=== PATIENT | female | born 1985 | race Caucasian/White ===

== ENCOUNTER → 2020-10-15 | Outpatient (CLI) | payer OTHER | LOC: COL.RAD 11:24 | DX: R29.898 Other symptoms and signs involving the musculoskeletal system (principal); R51.9 Headache, unspecified ==

== ENCOUNTER 2023-09-14 01:07 | Observation (INO) | payer OTHER ==
[~2023-09-14] VITALS: Ht 172.7 cm; Wt 99.6 kg
[2023-09-14] VITALS (18 sets, daily range): BP systolic 110–151; BP diastolic 62–84; PULSE 71–88; TEMP 97.7–98.7
[~2023-09-14 01:07] MED LIST: CARAFATE 1GM1 G PO; CYMBALTA 60MG60 MG PO; LEXAPRO 5MG5 MG PO; NATURAL MAGNES200 MG PO; PROTONIX20 MG PO; VITAMIN D31000 I1 PO
[2023-09-14] MEDS ORDERED: NS 1,000 ML IV ONE (01:30)
[2023-09-14] MEDS ORDERED: Ondansetron 4 MG/2 ML VIAL IV ONE (01:30)
[2023-09-14] MEDS ORDERED: HYDROmorphone 0.5 MG/0.5 ML SYRINGE IV ONE ×2 (01:30→02:15)
[2023-09-14 01:43] LABS: HEMATOCRIT 40.3 % (37.0-47.0); HEMOGLOBIN 13.4 g/dl (12.5-16.0); MEAN CELL VOLUME 86 fl (80.0-100.0); MEAN CORPUSCULAR HEMOGLOBIN 29 pg (27-31); MEAN CORPUSCULAR HGB CONC 33 g/dl (33.0-37.0); MEAN PLATELET VOLUME 9.4 fl (7.4-10.4); PLATELET COUNT 311 K/mm3 (130-400); RED BLOOD COUNT 4.67 M/mm3 (4.10-5.30); REDCELL DISTRIBUTION WIDTH-CV 12.6 % (11.5-14.5)
[2023-09-14 01:55] LABS: COLLECTION METHOD CLEAN CATCH
[2023-09-14 02:01] LABS: ALANINE AMINOTRANSFERASE 14 U/L (0-55); ALBUMIN 3.8 gm/dL (3.5-5.0); ALKALINE PHOSPHATASE 99 U/L (40-150); ANION GAP 10 mmol/L (7-16); AST,SGOT 10 U/L (5-34); BILIRUBIN,TOTAL 0.3 mg/dL (0.2-1.2); BLOOD UREA NITROGEN 12 mg/dL (7-19); C-REACTIVE PROTEIN 0.67 mg/dL (0.00-0.50); CALCIUM 9.6 mg/dL (8.4-10.2); CARBON DIOXIDE 22 mmol/L (22-29); CHLORIDE 107 mmol/L (98-107); CREATININE, serum 0.85 mg/dL (0.57-1.11); GLUCOSE 128 mg/dL (70-99); LIPASE 199 U/L (8-78); POTASSIUM 4.1 mmol/L (3.5-4.5); SODIUM 139 mmol/L (136-145)
[2023-09-14 02:08] LABS: TROPONIN-I < 0.010 ng/mL (0.00-0.033)
[2023-09-14 02:09] LABS: LYMPHOCYTE 55 % (20.0-51.0); NEUTROPHILS 38 % (42.0-75.2)
[2023-09-14 02:10] LABS: HYPOCHROMIA 1+; PLATELET ESTIMATE NORMAL (NORMAL)
[2023-09-14 02:38] LABS: PH 5.5 (5.0-8.5); SQUAMOUS EPITHELIAL 0-2 /hpf (0-10); URINE APPEARANCE Clear (CLEAR/HAZY); URINE BACTERIA Occasional /hpf (NONE SEEN); URINE BLOOD Negative (NEGATIVE); URINE COLOR Yellow (YELLOW); URINE GLUCOSE Negative (NEGATIVE); URINE KETONE Negative (NEGATIVE); URINE NITRATE Negative (NEGATIVE); URINE PROTEIN(semi-quant) Negative (NEGATIVE); URINE RBC 0-2 /hpf (0-2); URINE UROBILINOGEN 0.2 E.U/dL (0.2-1.0)
[2023-09-14] MEDS ORDERED: Iohexol 300 - 100 ML VIAL IV ONE (02:46)
[2023-09-14] MEDS ORDERED: NS 60 ML IV ONE (02:47)
[2023-09-14] MEDS ORDERED: Ondansetron 4 MG/2 ML VIAL IV PRN ×2 (03:45→16:45)
[2023-09-14] MEDS ORDERED: NS 1,000 ML IV SCH (03:45)
[2023-09-14] MEDS ORDERED: HYDROmorphone 0.5 MG/0.5 ML SYRINGE IV PRN (03:45)
[2023-09-14] MEDS ORDERED: GLUCOPHAGE500 MG/TAB PO (04:10)
--- NOTE | 2023-09-14 05:04 | NUR ---
patient arrived from ED at 0415, alert and oriented x4. pt denies chest pain, shortness of breath, and nausea. reports 5/10 intermittent dull/sharp pain in the upper right quadrant that is tender to palpation, refuses additional pain meds at this time. IV in LAC is patent, site is clean dry and intact with NS running at 125ml/hr. no remarkable skin findings noted. pt has no further needs, questions, or concerns at this time. pt ambulating with steady gait. call light within reach. will continue to monitor.
[2023-09-14] MEDS ORDERED: Dextrose 50% Water 25 GM/50 ML SYRINGE IV PRN (07:15)
[2023-09-14] MEDS ORDERED: Dextrose (Glucose) 15 GM (4 x 3.75 GM) Chewable TABLET PACK PO PRN (07:15)
[2023-09-14] MEDS ORDERED: Glucagon 1 MG VIAL IM PRN (07:15)
--- NOTE | 2023-09-14 07:15 | NUR ---
pt a&ox3 resting in bed. pt reports nausea and pain, zofran and dilaudid given. pt rates pain a 01/29. fluids infusing into left ac at 125 ml/hr. pt to have US today. denies needs at this time. call light in reach.
[2023-09-14] MEDS ORDERED: Insulin Aspart (NovoLOG) SQ SCH (08:00)
[2023-09-14] MEDS ORDERED: GLUCOPHAGE XR500 M1 PO (10:14)
[2023-09-14] MEDS ORDERED: LEXAPRO20 MG PO (10:14)
[2023-09-14] MEDS ORDERED: MAG-OX 400400 MG/TAB PO (10:15)
[2023-09-14] MEDS ORDERED: PROTONIX 40MG T40 MG PO (10:16)
[2023-09-14] MEDS ORDERED: LEADER NATUR1000 MCG PO (10:16)
[2023-09-14] MEDS ORDERED: Acetaminophen 500 MG TAB PO PRN (12:30)
--- NOTE | 2023-09-14 13:26 | NUR ---
Individual Pension Adviser met with patient and her , Beau (ph#[phone]) to discuss discharge planning. Patient lives in [place] and goes to [facility] on [address] for primary care. Patient either uses [facility] or [facility] to fill her medications. 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 Patient does not use any DME and is able to drive herself to medical appointments. Patient does not have DPOA-HC and was not interested in completing one at this time. Discharge Plan: Home
[2023-09-14] MEDS ORDERED: LR 1,000 ML IV SCH (13:30)
--- NOTE | 2023-09-14 15:35 | NUR ---
pt off floor for surgery
[2023-09-14] MEDS ORDERED: fentaNYL 50 MCG/ML 2 ML VIAL ONE (15:43)
[2023-09-14] MEDS ORDERED: Rocuronium 50 MG/5 ML Multi-Dose VIAL ONE (15:43)
[2023-09-14] MEDS ORDERED: Succinylcholine PF 100 MG/5 ML SYRINGE/POLY AMP IV ONE (15:44)
[2023-09-14] MEDS ORDERED: Ondansetron 4 MG/2 ML VIAL ONE (16:16)
[2023-09-14] MEDS ORDERED: dexAMETHasone 10 MG/ML VIAL ONE (16:16)
[2023-09-14] MEDS ORDERED: Ketorolac 30 MG/ML VIAL ONE ×2 (16:35)
[2023-09-14] MEDS ORDERED: Lidocaine PF 2% (20 MG/ML) 5 ML VIAL ONE (16:37)
[2023-09-14] MEDS ORDERED: fentaNYL 50 MCG/ML 2 ML VIAL IV PRN (16:45)
[2023-09-14] MEDS ORDERED: hydrALAZINE 20 MG/ML 1 ML VIAL IV PRN (16:45)
[2023-09-14] MEDS ORDERED: HYDROmorphone 2 MG/1 ML VIAL IV PRN (16:45)
[2023-09-14] MEDS ORDERED: Meperidine 50 MG/ML 1 ML VIAL IV PRN (16:45)
--- NOTE | 2023-09-14 17:30 | NUR ---
pt is back in room from surgery, at bedside. vss. pt reports some discomfort. x3 lap sites are cdi. pt denies needs at this time.
--- NOTE | 2023-09-14 20:41 | NUR ---
Patient assesed around 2029. Denied having pain and discomfort at that time. Peripheral INT to left AC. Tolerating PO well, saline locked IV site. Lap sites to abdomen with bandaids CDI. Voices no questions, needs, or concerns at this time. In bed with call light within reach.
--- NOTE | 2023-09-15 03:30 | NUR ---
Patient denied needing any PRN pain medication this shift. Patient declined insulin during the night. Voices no questions, needs, or concerns. Report given to oncoming nurse at approximately 0330.
[2023-09-15 03:47] VITALS: BP 111/70; PULSE 76; TEMP 97.7
--- NOTE | 2023-09-15 08:10 | NUR ---
PT RESTING IN BED WITH 4/10 PAIN IN ABDOMEN. PRN TYLENOL PROVIDED PER EMAR. STEADY GAIT AROUND ROOM. PT TOLERATING DIET. PT REFUSED ANY INSULIN AT THIS TIME. NO NEEDS AT THIS TIME. WILL CONTINUE TO MONITOR.
[2023-09-15 08:23] VITALS: BP 129/78; PULSE 73; TEMP 97.5
[2023-09-15] MEDS ORDERED: metFORMIN XR 500 MG TAB PO SCH (09:00)
[2023-09-15] MEDS ORDERED: DULoxetine 60 MG CAP PO SCH (09:00)
[2023-09-15] MEDS ORDERED: Escitalopram 10 MG TAB PO SCH (09:00)
[2023-09-15 09:02] VITALS: BP_SYST 129
[2023-09-15] MEDS ORDERED: NORCO 325 MG-51 TAB PO (09:07)
--- NOTE | 2023-09-15 09:50 | NUR ---
DISCHARGE PROVIDED TO PT AND FAMILY. DISCUSSED FOLLOW UP APPOINTMENTS, NEW MEDICATIONS, AND SIGNS OF INFECTION. NO QUESTIONS AT THIS TIME. IV REMOVED. PT ESCORTED OUT OF BUILDING.
== END 2023-09-15 09:49 | disposition home or self-care (01) ==
LOC: COL.ER 01:07 → SURG 03:32
PROVIDERS: Nurse Practitioner; ADMIT Surgery
DX: K80.12 Calculus of gallbladder with acute and chronic cholecystitis without obstruction (principal); E11.9 Type 2 diabetes mellitus without complications; Z79.4 Long term (current) use of insulin; Z87.891 Personal history of nicotine dependence
CPT/HCPCS: G0378; J0330; J0665; J1100; J1170; J1885; J2405; J2543; J2704; J3010; J7030; Q9967